=== PATIENT | female | born 1950 | race Caucasian/White ===

== ENCOUNTER → 2016-07-05 | Outpatient (CLI) | payer BC ==
[~2016-07-05] MED LIST: ASPI-664 PO; CHOL400C PO; HYDR12.58 PO; LORA-441 PO; LORA0.5T PO; MAXZ25 PO; MECL-77 PO; MULT-552 PO; OMEG-135 PO; OMEG500C3 PO; ONDA4SOL2 PO; RESTOP4 OP; TURM500C8 PO; ZOLP5TAB PO; [UNRECOGNIZED DRUG - CODE] PO
== END | disposition home or self-care (01) ==
LOC: HKI 09:27
PROVIDERS: ATTEND Orthopaedic Surgery
DX: Z01.818 Encounter for other preprocedural examination (principal); T84.06 Wear of articular bearing surface of internal prosthetic joint; T84.050 Periprosthetic osteolysis of internal prosthetic right hip joint; Z96.643 Presence of artificial hip joint, bilateral
CPT/HCPCS: G0463

== ENCOUNTER 2016-07-13 07:29 | Inpatient (IN) | payer BC, MEDICARE ==
[2016-07-12 15:44] VITALS: BMI 30.2
[2016-07-13] VITALS (17 sets, daily range): BP systolic 130–154; BP diastolic 71–91; PULSE 57–97; RESP 10–22; Ht 172.7 cm; Wt 85.2 kg
[~2016-07-13] VITALS: Ht 172.7 cm; Wt 85.2 kg
[2016-07-13] MEDS: PAIN COCKTAIL - VANCOMYCIN IRR SCH ×14 (06:00→12:39)
[~2016-07-13 07:29] MED LIST changes: +BUPIVACAINE LIPOSOME/PF 266 MG/20 ML VIAL INFIL SCH; +CEFAZOLIN 1 GM INJ ONE; +CELECOXIB 400 MG PO X1 DOSE PO ONE; -CHOL400C PO; +EXPAREL NOTE (BUPIVICAINE LIPOSOMAL) XX SCH; -HYDR12.58 PO; +LACTATED RINGER'S 1,000 ML IV SCH; -LORA-441 PO; -LORA0.5T PO; -MAXZ25 PO; -MECL-77 PO; -ONDA4SOL2 PO; +PREGABALIN 300 MG PO X1 PO ONE; +TRANEXAMIC ACID 900 MG in SOD CHLORIDE 0.9% 100 ML IVPB SCH; +TRANEXAMIC ACID 900 MG in SOD CHLORIDE 0.9% 91 ML IV ONE; -TURM500C8 PO; +VANCOMYCIN 1 GM/NS 250 ML X1 BEFORE INCISION IVPB ONE; -ZOLP5TAB PO; +oxyCODONE (CR) 10 MG TAB [oxyCONTIN] X1 DOSE PO ONE; +traMADOL 50 MG TAB X 1 DOSE PO ONE
[2016-07-13] MEDS ORDERED: ZOLP5TAB PO (09:06)
[2016-07-13] MEDS ORDERED: LORA0.5T PO (09:06)
[2016-07-13] MEDS ORDERED: LORA-441 PO (09:06)
[2016-07-13] MEDS ORDERED: ONDA4SOL2 PO (09:06)
[2016-07-13] MEDS ORDERED: TURM500C8 PO (09:06)
[2016-07-13] MEDS ORDERED: HYDR12.58 PO (09:06)
[2016-07-13] MEDS ORDERED: CHOL400C PO (09:06)
[2016-07-13] MEDS ORDERED: MAXZ25 PO (09:07)
[2016-07-13] MEDS ORDERED: MECL-77 PO (09:09)
[2016-07-13] MEDS ORDERED: BACITRACIN 50000 UNITS INJ ONE (09:31)
--- NOTE | 2016-07-13 10:03 | HPN ---
Date/Time of Note Date/Time of Note DATE: 07/13/16 TIME: 10:02 Interval H&P Admission Note Pt. seen H&P reviewed: No system changes No change from H&P on 07/05/16 by LEENA Chadwick MD Jul 13, 2016 10:03
[2016-07-13] MEDS ORDERED: HEPARIN 1000 UNITS/ML 10 ML INJ ONE (10:05)
[2016-07-13] MEDS ORDERED: SODIUM CL BACTERIOSTATIC 30 ML INJ ONE ×2 (10:05→11:51)
[2016-07-13] MEDS ORDERED: VANCOMYCIN 1 GM INJ ONE ×2 (10:06→10:13)
[2016-07-13] MEDS ORDERED: POLYMYXIN B 500000 UNIT INJ ONE (10:06)
[2016-07-13] MEDS ORDERED: TOBRAMYCIN 1.2 GM POWDER ONE (10:13)
[2016-07-13] MEDS ORDERED: FENTAnyl 50 MCG/ML VIAL ONE (10:33)
[2016-07-13] MEDS ORDERED: MIDAZOLAM 1 MG/ML 2 ML INJ ONE (10:33)
[2016-07-13] MEDS ORDERED: DEXAMETHASONE 4 MG/ML 1 ML INJ ONE (10:44)
[2016-07-13] MEDS: traMADol 50 MG TAB PO SCH ×3 (12:00→23:05)
[2016-07-13] MEDS ORDERED: NALOXONE (0.4 MG/ML) INJ IV PRN (13:00)
[2016-07-13] MEDS ORDERED: ONDANSETRON 4 MG INJ IV PRN ×3 (13:00→13:30)
[2016-07-13] MEDS ORDERED: LABETALOL HCL 20MG INJ IV PRN (13:00)
[2016-07-13] MEDS ORDERED: MEPERIDINE 25 MG INJ IV PRN (13:00)
[2016-07-13] MEDS ORDERED: METOCLOPRAMIDE 10 MG INJ IV PRN (13:00)
[2016-07-13] MEDS ORDERED: DIPHENHYDRAMINE 50 MG INJ IV PRN ×2 (13:00)
[2016-07-13] MEDS ORDERED: HYDROmorphONE (0.2 MG/ML) 10ML SYG IV PRN ×2 (13:00)
[2016-07-13] MEDS ORDERED: FENTAnyl 50 MCG/ML VIAL IV PRN (13:00)
[2016-07-13] MEDS ORDERED: hydrALAzine 20 MG INJ IV PRN (13:00)
[2016-07-13] MEDS ORDERED: PROPOFOL 100 ML ONE (13:09)
[2016-07-13] MEDS ORDERED: ONDANSETRON 4 MG INJ ONE (13:09)
[2016-07-13] MEDS ORDERED: PROPOFOL 20 ML ONE (13:09)
[2016-07-13] MEDS ORDERED: ROCURONIUM 50 MG INJ ONE (13:09)
[2016-07-13] MEDS ORDERED: LIDOCAINE 2% (SDV) 5 ML INJ ONE (13:09)
--- NOTE | 2016-07-13 13:19 | RADRPT ---
PROCEDURE: Right hip x-rays series CLINICAL INDICATION: Pain. Right hip arthroplasty TECHNIQUE: Single AP x-ray was obtained intraoperatively during a right hip arthroplasty procedure . COMPARISON: None available FINDINGS: Single AP x-ray was obtained intraoperatively for localization during a right hip arthroplasty. Bila teral hip arthroplasties are seen in anatomic position. IMPRESSION: 1. Xray image obtained intraoperatively for localization during a right hip arthroplasty. RPTAT: QQ .Dustin Sosa MD, MD Date Time Electronically viewed and signed by .Dustin Sosa MD, on 07/13/2016 13:19 .R/
[2016-07-13] MEDS ORDERED: NACL 0.9% 3 ML SYG IV SCH (13:30)
[2016-07-13] MEDS ORDERED: HYDROmorphONE 1 MG/ML SYG IV PRN (13:30)
[2016-07-13] MEDS ORDERED: oxyCODONE 5 MG TAB PO PRN ×2 (13:30)
[2016-07-13] MEDS ORDERED: MAGNESIUM HYDROXIDE 30ML CUP PO PRN (13:30)
[2016-07-13] MEDS ORDERED: ZOLPIDEM 5 MG TAB PO PRN (13:30)
[2016-07-13] MEDS ORDERED: LORAZEPAM 0.5 MG TAB PO PRN (13:30)
[2016-07-13] MEDS ORDERED: BISACODYL 10 MG SUPP PR PRN (13:30)
[2016-07-13] MEDS ORDERED: DIPHENHYDRAMINE 25 MG CAP PO PRN (13:30)
[2016-07-13] MEDS ORDERED: NA PHOSPHATE/BIPHOS 133 ML ENEMA PR PRN (13:30)
[2016-07-13] MEDS ORDERED: ASPIRIN (EC) 325 MG TAB PO ONE (13:30)
--- NOTE | 2016-07-13 13:42 | OPPN ---
Date/Time of Note Date/Time of Note DATE: 07/13/16 TIME: 13:39 Operative/Procedure Note Dictation # [id number] Pre-Operative Diagnosis Polyethylene Wear Right FABIENNE Post-Operative Diagnosis Same Procedure Revision Right FABIENNE Surgeon: LEENA CONKLIN MD Banquet Bartender: TRACY MCCALLUM PA-C Anesthesiologist: ALEXEI LINDSAY MD Findings Poly wear, osteolysis proximal femur, well fixed components Blood Usage/Administration None Implants/Grafts Beba poly liner and cobalt chrome femoral head Estimated blood loss: 150 - 200 ml's Drains Hemovac x 1 Specimens Aerobic and anaerobic culture x 2 Complications: None Anesthesia type: spinal LEENA CONKLIN MD Jul 13, 2016 13:41
[2016-07-13] MEDS: LACTATED RINGER'S 1,000 ML IV SCH ×2 (14:23→18:02)
[2016-07-13 14:29] LABS: POTASSIUM 4.6 mmol/L (3.5-5.1)
[2016-07-13 14:32] LABS: CREATININE 0.74 mg/dl (0.44-1.00)
--- NOTE | 2016-07-13 14:43 | OPR ---
DATE OF OPERATION: 07/13/2016 PREOPERATIVE DIAGNOSIS: Polyethylene wear, right total hip arthroplasty. POSTOPERATIVE DIAGNOSIS: Polyethylene wear, right total hip arthroplasty. OPERATION PERFORMED: Revision right total hip arthroplasty (head and liner exchange) SURGEON: Leena Mandel MD BAG MACHINE OPERATOR HELPER: EMMA Moya COMPONENTS USED: [employer] 32+4 10-degree elevated polyethylene liner, 32+4 cobalt chrome femoral head. ANESTHESIA: Spinal plus general endotracheal intubation plus periarticular injection. ANESTHESIOLOGIST: Andrea Frias MD ESTIMATED BLOOD LOSS: 200 mL INTRAVENOUS FLUIDS: 1400 mL crystalloid. SPECIMENS: Aerobic and anaerobic culture of joint fluid x2. DRAINS: Hemovac x1. COMPLICATIONS: None. DISPOSITION: The patient tolerated the procedure well, was taken to the recovery room in stable condition. INDICATIONS: The patient is a 65-year-old woman who had a previous right total hip arthroplasty through a posterior approach about 15 years ago. She has developed eccentric polyethylene wear with superolateral proximal migration of the femoral head. I felt she would benefit from a revision with head and liner exchange. There was also some mild osteolysis proximally in the femur. I felt this may be amenable to allograft packing, which she consented to. The risks, benefits, and alternatives to hip replacement surgery were discussed at length with the patient. The risks of the surgery were explained to include bleeding; infection; pain; stiffness; neurovascular injury including possible numbness, weakness, or permanent paralysis anywhere from the hip down to the toes; fracture; instability; dislocation; leg length inequality; wearing and/or loosening of the prosthesis and possible need for revision at a later date; blood clots; pulmonary embolism; and anesthetic complications such as heart attack, stroke, gastrointestinal bleeding, pneumonia, and/or . Ample time was allowed for the patient to ask questions, all of which were addressed and answered. She understood the risks involved and wished to proceed. Informed consent was signed. DESCRIPTION OF PROCEDURE: The right hip was initialed with a marking pen in the preoperative holding area to identify the correct operative site. The patient was then brought to the operating room and transferred from the [facility] to the operating table, where she was administered a spinal anesthetic and then anesthetized and intubated. Time-out was performed to confirm the right side was correct operative site. She was turned to lateral decubitus position with the right side up. An axillary roll was placed under the left chest wall. She was secured into the pegboard, and all bony prominences were well padded. The right hip and lower extremity were prepped and draped in usual sterile fashion. The patient had been given 1 gram of vancomycin, 1 gram of intravenous Ancef within 1 hour prior to the incision. The previous posterolateral scar was excised. This was carried down to subcutaneous tissue and fat with sharp dissection. The iliotibial band, gluteus rudi muscle fascia were incised along the length of the wound. The gluteus rudi muscle fibers were bluntly split. The trochanteric bursa was incised. The posterior capsule and short external rotator soft tissue sleeve, which was scarred down to 1 wad of tissue, was taken off the posterior aspect of the greater trochanter with electrocautery and tagged with #2 FiberWire. Synovial fluid was encountered and normal in color and consistency and swabbed for aerobic and anaerobic cultures. Femoral head was dislocated posteriorly. The stem appeared well affixed and had about 20 degrees of anteversion. There was some osteolysis along the posterior calcar which was removed with a curet. This was irrigated. The stem remained well affixed. The fibrous tissue around the acetabulum was debrided with a sharp scalpel blade and a small pocket made anteriorly for the trunnion to sit. The femur was retracted anteriorly, and the polyethylene liner was identified. A screw was drilled into the liner to remove this from the cup. The cup remained well fixed and had about 45 degrees of adduction and 20 degrees of anteversion. The central hole eliminator had pushed medial, and I was unable to bring it back out, but I felt that it would be safe to leave it in place. The cup was irrigated, and the real 32+4 10- degree lipped polyethylene liner was opened and packed into the acetabulum and sat flush circumferentially. The apex was placed at about the 10-o'clock position. The trunnion was irrigated and dried, and I trialed with a 32+8 head , but this was extremely tight and difficult to reduce. I then trialed with the 32+4 and felt that this was able to be reduced. The Ranawat sign showed a combined forward flexion of 45 degrees. The hip was stable. The hip came to 110 degrees of flexion. At 90 degrees of flexion and neutral abduction, the hip was stable posteriorly to 80 degrees of internal rotation. In the position of sleep was stable to 85 degrees of internal rotation. The hip came to full extension with no posterior impingement or anterior instability. Cross-table AP pelvis showed that the leg lengths were equal, as was the offset. At this point, the trial was dislocated and the real head opened and impacted onto the trunnion and reduced into the acetabulum. A repeat cross-table AP pelvis was obtained showing the leg lengths and offset to be equal. Allograft had been packed into the osteolytic defect posteromedially. The hip was irrigated with antibiotic saline pulsatile lavage and then Betadine saline and then additional antibiotic saline pulsatile lavage. Soft tissues were infiltrated with a combination of 0.5% bupivacaine, Duramorph, epinephrine, vancomycin, Toradol, clonidine, normal saline and 266 mg of liposomal bupivacaine. A Hemovac drain was placed in the deep portion of the wound and brought out the anterolateral thigh. The hip was filled with Stimulan beads that were mixed with vancomycin and tobramycin. The posterior capsule and short external rotator sleeve were repaired back to the greater trochanter through drill holes with #2 FiberWire. Quadratus femoris was repaired back to the vastus lateralis with running #1 Vicryl. The sciatic nerve was palpated, noted to be intact with no undue tension. The iliotibial band was closed with interrupted #1 Ethibonds in a [id number] fashion. The subcutaneous layer was irrigated and closed with 2 -0 Stratafix and then 3-0 Stratafix and then nir on the skin. The skin edges were sealed with Dermabond. The drain was secured with 3-0 nylon. Sponge and needle counts correct at the end of the case. The wound was covered with a silver Mepilex dressing. The patient was taken out of the pegboard and turned to the supine position, where she was noted to have equal leg lengths. She was awakened, extubated. An abduction pillow was placed between her legs, and she was transferred to the [facility] and taken to the recovery room in stable condition. Dictated By: LEENA ANSARI/ANGELITA Conf#: [id number] DID#: [id number] TARA
--- NOTE | 2016-07-13 15:04 | PN ---
Date/Time of Note Date/Time of Note DATE: 07/13/16 TIME: 14:59 Assessment/Plan Lines/Catheters IV Catheter Type (from Nrsg): Peripheral IV Assessment/Plan Assessment/Plan Stable in PACU, s/p revision right FABIENNE (head and liner exchange) -cont Vanco x 72 hours until culture are negative -pain meds -ASA/SCDs for DVT prophylaxis -OOB with PT -monitor drain -check AM labs -d/c zapien in AM XR of the right hip shows good alignment with no evidence of dislocation Subjective 24 Hr Interval Summary Doing well in PACU. Denies any pain. Moving all extremities. Abduction pillow in place. Exam/Review of Systems Vital Signs Vitals Vital Signs Date Time Temp Pulse Resp B/P Pulse Ox O2 Delivery O2 Flow Rate FiO2 07/13/16 14:43 68 15 130/85 97 Room Air 07/13/16 13:50 98.0 Exam Free Text/Dictation Dressing dry Incision clean, dry, and intact without redness or drainage 5/5 Quadriceps, Tibialis Anterior, EHL, Gastroc, Soleus, Peroneals Normal sensation Palpable DT/PT, CR <2 sec No distal edema Results Result Diagram: 07/13/16 1400 TRACY MCCALLUM PA-C Jul 13, 2016 15:04
--- NOTE | 2016-07-13 15:32 | RADRPT ---
PROCEDURE: XR Hip. CLINICAL INDICATION: Postoperative evaluation TECHNIQUE: AP view of the right hip was performed. COMPARISON: None. FINDINGS: Right hip arthroplasty is in place, in anatomic position. There is no acute fracture or dislocation . Antibiotic beads, surgical drain and skin nir are identified in place. No radiodense foreign body is identified. IMPRESSION: 1. Unremarkable right hip arthroplasty postoperative appearance. RPTAT: QQ .Dustin Sosa MD, MD Date Time Electronically viewed and signed by .Dustin Sosa MD, on 07/13/2016 15:32 .R/
--- NOTE | 2016-07-13 15:34 | RADRPT ---
PROCEDURE: XR pelvis. CLINICAL INDICATION: Hip pain TECHNIQUE: Single view available for review. COMPARISON: 04/17/2016 FINDINGS: There is a postoperative right total hip replacement. There are antibiotic beads surrounding the rig ht hip. The drain is in place. There is no evidence of loosening of the prosthesis. There is a unr emarkable previous left total hip replacement. There is normal mineralization, architecture and alig nment. No fractures, dislocation or osseous lesions are identified. The joints are unremarkable. There are normal soft tissues. IMPRESSION: Postoperative right total hip replacement Antibiotic beads surrounding the right hip. Drain in place. Unremarkable previous left total hip replacement RPTAT: HGDB .Delano Lemus MD, Date Time Electronically viewed and signed by .Delano Lemus MD, on 07/13/2016 15:33 .B/
[2016-07-13 15:47] LABS: HEMOGLOBIN 15.1 g/dl (12.0-16.0)
--- NOTE | 2016-07-13 17:35 | CONS ---
DATE OF ADMISSION: 07/13/2016 DATE OF CONSULTATION: 07/13/2016 Thank you very much for allowing me to evaluate this 65-year-old female who just underwent right hip surgery. HISTORICAL EVENTS: As you well know, this patient did undergo right hip arthroplasty, having had a prior hip replacement. Presently on the orthopedic floor, she is comfortable without cough, wheezin g, shortness of breath, nausea, vomiting, abdominal or chest pain. PAST MEDICAL HISTORY: Includes: 1. Tubal ligation. 2. Breast augmentation. 3. Lasix surgery. 4. Blepharoplasty. 5. Total abdominal hysterectomy. 5. History of benign positional vertigo. 7. History of hypertension. 8. No history of coronary disease or diabetes. 9. History of low back pain, undergoing orthopedic evaluation with Dr. Kaplan in the late fall o f this year, receiving an epidural with release of "back pain". MEDICATIONS: Prior to admission: 1. Ambien 10 mg per day. 2. Restasis OU b.i.d. 3. Caltrate b.i.d. 4. Maxzide 25/37.5 mg daily. 5. Antivert 25 mg q.6h. p.r.n. SOCIAL HISTORY: She does not smoke. She is an RN. FAMILY HISTORY: Positive for hypertension and coronary artery disease. ALLERGIES: INCLUDE PENICILLIN. PHYSICAL EXAMINATION: GENERAL: [place] female in no acute distress. VITAL SIGNS: BP 122/80, pulse 70, respirations are 20, she was afebrile. EYES: Extraocular muscles were full. NOSE, MOUTH, AND THROAT: Normal. NECK: Supple. There was no jugular venous distention, thyroid enlargement or adenopathy. Carotids 2+. LUNGS: Clear. HEART: Rhythm regular. ABDOMEN: Nontender. Liver and spleen were not palpable. No masses or tenderness were noted. EXTREMITIES: No edema. IMPRESSION: 1. Stable postop right hip revision. 2. History of hypertension. BP will be monitored throughout. At this point will not resume diuret ics a PLAN: Will follow daily and observe for signs and symptoms of thromboembolic disease. Dictated By: OSMAN BARNETT/NTS Conf#: [id number] DID#: [id number]
[2016-07-13] MEDS: ACETAMINOPHEN 1000MG/100ML IV 100 ML IVPB SCH ×2 (18:01→23:05)
[2016-07-13] MEDS: PANTOPRAZOLE (EC) 40 MG TAB PO SCH (18:01)
[2016-07-13] MEDS: DOCUSATE SODIUM 100 MG CAP PO SCH (20:55)
[2016-07-13] MEDS: PREGABALIN 25 MG CAP PO SCH (20:56)
[2016-07-13] MEDS: CYCLOSPORINE 0.05% OPH DROPERETTE LEFT EYE SCH (22:34)
[2016-07-13] MEDS: VANCOMYCIN 1 GM (PMX) 250 ML IVPB SCH (23:29)
[2016-07-14] VITALS: BP 161/78; RESP 18
[2016-07-14 01:44] VITALS: BP 126/70; PULSE 79
[2016-07-14] MEDS: traMADol 50 MG TAB PO SCH ×4 (05:27→23:34)
[2016-07-14] MEDS: PANTOPRAZOLE (EC) 40 MG TAB PO SCH ×2 (05:27→17:38)
[2016-07-14] MEDS: LACTATED RINGER'S 1,000 ML IV SCH ×4 (05:27→21:30)
[2016-07-14] MEDS: ACETAMINOPHEN 1000MG/100ML IV 100 ML IVPB SCH ×2 (05:27→13:12)
[2016-07-14 06:18] LABS: HEMATOCRIT 38.6 % (37.0-47.0); HEMOGLOBIN 13.1 g/dl (12.0-16.0)
[2016-07-14 06:44] LABS: POTASSIUM 4.4 mmol/L (3.5-5.1)
[2016-07-14 06:47] LABS: CREATININE 0.69 mg/dl (0.44-1.00)
[2016-07-14 06:48] LABS: CALCIUM 8.6 mg/dl (8.4-10.2)
[2016-07-14 07:19] LABS: ADD UMIC NO; URINE BILIRUBIN (Dip) NEGATIVE (NEGATIVE); URINE BLOOD (Dip) NEGATIVE (NEGATIVE); URINE COLOR LT. YELLOW (YELLOW); URINE GLUCOSE (Dip) NEGATIVE (NEGATIVE); URINE KETONES (Dip) NEGATIVE (NEGATIVE); URINE LEUKOCYTE ESTERASE (Dip) NEGATIVE (NEGATIVE); URINE NITRITE (Dip) NEGATIVE (NEGATIVE); URINE TOTAL PROTEIN (Dip) NEGATIVE (NEGATIVE); URINE UROBILINOGEN (Dip) 0.2 E.U./dL (0.1-1.0)
--- NOTE | 2016-07-14 07:45 | PDOCDIS ---
Discharge Instructions DIAGNOSIS Discharge Diagnosis: s/p revision right FABIENNE (head and liner exchange) CONDITION Patient Condition: Good HOME CARE INSTRUCTIONS: Diet Instructions: Regular ACTIVITY: Activity Restrictions: Slowly Increase Activity Rest between Activity Avoid heavy lifting Do not operate Machinery Do not operate Power Tool Avoid Heavy Housework Keep Limb Elevated Bathing Restrictions: Shower FOLLOW UP/APPOINTMENTS Appointments follow up with Dr. Mandel in the office on 07/24/16 OTHER ORDERS: Other Orders: S/P Revision Posterior FABIENNE Physical Therapy: Three times per week at home x 2 weeks Daily in Rehab/SNF (if applicable) WB STATUS: WBAT Strengthening exercises for both upper and un-operated lower extremities. 1. Gait training with front wheeled walker 2. Wide base gait, no pivot turns. 3. Abductor strengthening. 4. Quadriceps and hamstring strengthening. 5. May switch to cane in contra lateral hand 6 weeks after surgery. 6. Physical Therapy can open case if nursing is not available. 7. Ice Packs while at rest to surgical wound for 20 minutes, 3 times/day. 8. Patient requires mobile SCDs to reduce risk of developing DVT following FABIENNE. Patient will use the mobile SCDs for 30 days postoperatively. Hip Precautions: no flexion beyond 90 degrees, no adduction, no internal rotation. Bathing assistance by home health aide twice weekly if Medicare patient. Occupational Therapy: Evaluation for assistive devices and ADL training. Wound Care: Keep incision dry & covered with Tegaderm until first visit with Dr. Mandel Anticoagulation Orders: Enteric Coated Aspirin 325 mg po bid x 6 weeks from date of surgery Follow-up:Call for an appointment with Dr. Mandel in 1 week after discharged from hospital at DME Orders: APRIL, 3-in-1 Commode, Mobile SCDs TRACY MCCALLUM PA-C Jul 14, 2016 07:45
[2016-07-14] MEDS ORDERED: ASPI325T32 PO (07:48)
[2016-07-14] MEDS ORDERED: PANT40TA4 PO (07:48)
[2016-07-14] MEDS ORDERED: HYDR-906 PO (07:48)
[2016-07-14] MEDS ORDERED: TRAM50TA2 PO (07:48)
[2016-07-14 08:23] VITALS: BP 151/87; RESP 16
--- NOTE | 2016-07-14 08:27 | PN ---
Date/Time of Note Date/Time of Note DATE: 07/14/16 TIME: 08:25 Assessment/Plan Lines/Catheters IV Catheter Type (from Nrsg): Peripheral IV Mcarthur in Place (from Nrsg): Yes Assessment/Plan Assessment/Plan Stable POD #1 s/p revision right posterior FABIENNE (head and liner exchange) -cont vanco x 72 hours until cx are negative -pain meds -ASA/SCDS -posterior hip precautions -OOB with PT -drain removed -check AM labs -d/c planning. Will likely go home on Sunday after final cx results Subjective 24 Hr Interval Summary Doing well. No acute overnight events. Denies significant pain. Did not start PT yet. VSS, afebrile. Exam/Review of Systems Vital Signs Vitals Vital Signs Date Time Temp Pulse Resp B/P Pulse Ox O2 Delivery O2 Flow Rate FiO2 07/14/16 08:23 98.2 68 16 151/87 92 07/13/16 16:20 Room Air Intake and Output 07/13/16 07/13/16 07/14/16 15:00 23:00 07:00 Intake Total 1400 ml 100 ml 3250 ml Output Total 670 ml 560 ml 3550 ml Balance 730 ml -460 ml -300 ml Exam Free Text/Dictation Hemovac: 30cc Dressing dry Incision clean, dry, and intact without redness or drainage 5/5 Quadriceps, Tibialis Anterior, EHL, Gastroc, Soleus, Peroneals Normal sensation Palpable DT/PT, CR <2 sec No distal edema Results Result Diagram: 07/14/1643907/14/16439 TRACY MCCALLUM PA-C Jul 14, 2016 08:27
[2016-07-14] MEDS: CELECOXIB 200 MG CAP PO SCH (08:28)
[2016-07-14] MEDS: ASPIRIN (EC) 325 MG TAB PO SCH ×2 (08:29→20:47)
[2016-07-14] MEDS: PREGABALIN 25 MG CAP PO SCH ×2 (08:29→20:47)
[2016-07-14] MEDS: DOCUSATE SODIUM 100 MG CAP PO SCH ×2 (08:29→20:47)
[2016-07-14] MEDS: CYCLOSPORINE 0.05% OPH DROPERETTE LEFT EYE SCH ×2 (08:29→21:00)
[2016-07-14] MEDS: VANCOMYCIN 1 GM (PMX) 250 ML IVPB SCH ×2 (10:58→20:47)
--- NOTE | 2016-07-14 13:39 | CONS ---
Date/Time of Note Date/Time of Note DATE: 07/14/16 TIME: 13:35 Assessment/Plan Assessment/Plan Chief Complaint/Hosp Course 1. She is 1 day post op a R FABIENNE revision , she is doing well . 2. HTN , D/C IV fluid and will restart Triamterene / HCTZ 3. continue current medication and PT . Problems: Consultation Date/Type/Reason Admit Date/Time Jul 13, 2016 at 07:29 Initial Consult Date 24 HR Interval Summary Free Text/Dictation she is 1 day post op a R FABIENNE revision . She denies pain . Constitutional: improved, no complaints Exam/Review of Systems Vital Signs Vitals Vital Signs Date Time Temp Pulse Resp B/P Pulse Ox O2 Delivery O2 Flow Rate FiO2 07/14/16 08:23 98.2 68 16 151/87 92 07/13/16 16:20 Room Air Intake and Output 07/13/16 07/13/16 07/14/16 15:00 23:00 07:00 Intake Total 1400 ml 100 ml 3250 ml Output Total 670 ml 560 ml 3550 ml Balance 730 ml -460 ml -300 ml Exam Constitutional: alert, oriented, well developed Psych: nl mood/affect, no complaints Respiratory: clear to auscultation, normal air movement Cardiovascular: regular rate and rhythm Gastrointestinal: soft Musculoskeletal: nl extremities to inspection Results Result Diagram: 07/14/16 0440 07/14/16 0440 Results 24 hrs Laboratory Tests Test 07/13/16 14:00 07/14/16 04:25 07/14/16 04:40 Anion Gap 19 H 15 Blood Urea Nitrogen 12 13 Calcium Level 9.0 8.6 Carbon Dioxide Level 22 24 Chloride Level 103 101 Creatinine 0.74 0.69 Glucose Level 115 122 Hematocrit 46.0 38.6 Hemoglobin 15.1 13.1 Potassium Level 4.6 4.4 Sodium Level 139 136 Urine Bilirubin NEGATIVE Urine Clarity CLEAR Urine Color LT. YELLOW Urine Glucose NEGATIVE Urine Hemoglobin NEGATIVE Urine Ketones NEGATIVE Urine Leukocyte Esterase NEGATIVE Urine Nitrite NEGATIVE Urine Specific [place] <=1.005 L Urine Total Protein NEGATIVE Urine Urobilinogen 0.2 E.U./dL Urine pH 5.5 Medications Medications Current Medications Miscellaneous Information 1 ea NOTE XX ; Start 07/13/16 at 06:00; Stop 07/16/16 at 05:59 Diphenhydramine HCl (Benadryl) 25 mg Q4H PRN IV PRURITUS; Start 07/13/16 at 13: 00 Naloxone HCl (Narcan) 0.2 mg Q2M PRN IV FOR RESP RATE 8 OR LESS; Start 07/13/16 at 13:00 Lorazepam (Ativan) 0.25 mg Q6 PRN PO ANXIETY; Start 07/13/16 at 13:30 Zolpidem Tartrate 5 mg 5 mg QHS PRN PO INSOMNIA; Start 07/13/16 at 13:30 Lactated Ringer's (Lr) 1,000 ml @ 125 mls/hr Q8H IV Last administered on 05:27; Admin Dose 125 MLS/HR; Start 07/13/16 at 13:25 Celecoxib 200 mg 200 mg DAILY PO Last administered on 07/14/16 08:28; Admin Dose 200 MG; Start 07/14/16 at 09:00 Acetaminophen (Ofirmev 1000mg/ 100ml Iv) 100 ml @ 400 mls/hr Q6 IVPB Last administered on 07/14/16 13:12; Admin Dose 400 MLS/HR; Start 07/13/16 at 18:00; Stop 07/14/16 at 17:59 Tramadol HCl (Ultram) 50 mg Q6 PO Last administered on 07/14/16 13:13; Admin Dose 50 MG; Start 07/13/16 at 12:00; Stop 07/16/16 at 11:59 Oxycodone HCl (Roxicodone) 5 mg Q4H PRN PO PAIN LEVEL 1-3; Start 07/13/16 at 13: 30 Oxycodone HCl (Roxicodone) 10 mg Q4H PRN PO PAIN LEVEL 4-7; Start 07/13/16 at 13 :30 Hydromorphone HCl 1 mg 1 mg Q3H PRN IV PAIN LEVEL 8-10; Start 07/13/16 at 13:30 Vancomycin HCl (Vancocin) 250 ml @ 125 mls/hr Q12 IVPB Last administered on 10:58; Admin Dose 125 MLS/HR; Start 07/13/16 at 21:00; Stop 07/16/16 at 20:59 Ondansetron HCl (Zofran Inj) 4 mg Q6H PRN IV NAUSEA AND/OR VOMITING; Start 07/13 at 13:30 Bisacodyl (Dulcolax Supp) 10 mg Q12H PRN CA CONSTIPATION; Start 07/13/16 at 13: 30 Magnesium Hydroxide (Milk Of Mag) 30 ml BID PRN PO CONSTIPATION; Start 07/13/16 at 13:30 Sodium Biphosphate/ Sodium Phosphate (Fleet Enema) 133 ml DAILY PRN CA CONSTIPATION; Start 07/13/16 at 13:30 Docusate Sodium (Colace) 100 mg BID PO Last administered on 07/14/16 08:29; Admin Dose 100 MG; Start 07/13/16 at 21:00 Diphenhydramine HCl (Benadryl) 25 mg Q6H PRN PO PRURITUS; Start 07/13/16 at 13: 30 Aspirin (Ecotrin) 325 mg BID PO Last administered on 07/14/16 08:29; Admin Dose 325 MG; Start 07/14/16 at 09:00 Pregabalin (Lyrica) 50 mg BID PO Last administered on 07/14/16 08:29; Admin Dose 50 MG; Start 07/13/16 at 21:00 Pantoprazole (Protonix Tab) 40 mg BID@06,18 PO Last administered on 07/14/16 05:27; Admin Dose 40 MG; Start 07/13/16 at 18:00 Cyclosporine (Restasis) 1 drop BID LEFT EYE Last administered on 07/14/16 08: 29; Admin Dose 1 DROP; Start 07/13/16 at 21:00 Miscellaneous Information (*Rx Drug Level Order Reminder*) VANCO TROUGH @ 0, 800 ON... ONCE ONCE XX ; Start 07/15/16 at 08:00; Stop 07/15/16 at 08:01 GAURI MOREL MD Jul 14, 2016 13:39
[2016-07-14 19:00] VITALS: BP 148/68; RESP 18
[2016-07-15 05:48] LABS: HEMATOCRIT 35.8 % (37.0-47.0); HEMOGLOBIN 12.2 g/dl (12.0-16.0)
[2016-07-15 06:07] LABS: POTASSIUM 4.8 mmol/L (3.5-5.1)
[2016-07-15 06:09] LABS: CREATININE 0.89 mg/dl (0.44-1.00)
[2016-07-15 06:10] LABS: CALCIUM 8.7 mg/dl (8.4-10.2)
[2016-07-15] MEDS: traMADol 50 MG TAB PO SCH ×4 (06:15→23:59)
[2016-07-15] MEDS: PANTOPRAZOLE (EC) 40 MG TAB PO SCH ×2 (06:15→18:03)
[2016-07-15 07:49] VITALS: BP 131/76; RESP 17
--- NOTE | 2016-07-15 08:26 | PN ---
Date/Time of Note Date/Time of Note DATE: 07/15/16 TIME: 08:22 Assessment/Plan VTE Prophylaxis VTE Prophylaxis Intervention: ambulation, SCD's, other (Aspirin 325 mg.) Lines/Catheters IV Catheter Type (from Nrsg): Saline Lock Mcarthur in Place (from Nrsg): Yes Assessment/Plan Assessment/Plan Stable POD #2 s/p revision right posterior FABIENNE (head and liner exchange) -cont vanco x 1 more day until cx are negative -pain meds -ASA/SCDS -posterior hip precautions -OOB with PT -check AM labs -d/c planning. Will likely go home tomorrow (Sunday) after final cx results Subjective 24 Hr Interval Summary 65-year-old female postop day 2. Patient doing well with no pain complaints. Has initiated physical therapy and confirms that she was ambulating throughout the hallways with assisted ambulation using front wheeled walker. Denies any calf pain, chest pain or shortness of breath. Patient is very pleased status post surgery. Constitutional: ambulates, no complaints Pain Control: well controlled Exam/Review of Systems Vital Signs Vitals Vital Signs Date Time Temp Pulse Resp B/P Pulse Ox O2 Delivery O2 Flow Rate FiO2 07/15/16 07:49 97.5 67 17 131/76 98 07/13/16 16:20 Room Air Intake and Output 07/14/16 07/14/16 07/15/16 15:00 23:00 07:00 Intake Total 350 ml 2790 ml 250 ml Output Total 40 ml 1800 ml Balance 310 ml 990 ml 250 ml Exam Free Text/Dictation -Hemovac: Removed -Incision: Clean, Dry and Intact without any redness or drainage. Maryuri intact. -Thigh soft -5/5 Quadriceps, Tibialis Anterior, EHL Gastrocnemius/Soleus and Peroneals -Normal Sensation -Palpable DP/PT, Capillary Refill <2 secs -No Distal Edema -Negative Neli Sign/No calf pain -Toes Freely Movable Constitutional: alert, oriented, well developed Results Result Diagram: 07/15/16 0440 07/15/16 0410 JOELLE KEMP PA-C Jul 15, 2016 08:26
[2016-07-15] MEDS: ASPIRIN (EC) 325 MG TAB PO SCH ×2 (08:53→20:50)
[2016-07-15] MEDS: CELECOXIB 200 MG CAP PO SCH (08:53)
[2016-07-15] MEDS: DOCUSATE SODIUM 100 MG CAP PO SCH ×2 (08:54→20:51)
[2016-07-15] MEDS: PREGABALIN 25 MG CAP PO SCH ×2 (08:54→20:50)
[2016-07-15] MEDS: TRIAMTERENE/HCTZ (37.5-25) CAP PO SCH (08:54)
[2016-07-15] MEDS: VANCOMYCIN 1 GM (PMX) 250 ML IVPB SCH ×2 (10:58→20:50)
[2016-07-15] MEDS: CYCLOSPORINE 0.05% OPH DROPERETTE LEFT EYE SCH ×2 (10:59→20:50)
[2016-07-15] MEDS: LACTATED RINGER'S 1,000 ML IV SCH ×2 (12:19→21:25)
--- NOTE | 2016-07-15 13:02 | CONS ---
Date/Time of Note Date/Time of Note DATE: 07/15/16 TIME: 13:01 Assessment/Plan Assessment/Plan Additional Assessment/Plan 1. POD 2 - R FABIENNE revision; doing well and wants to go home 2. anti-HTN meds re-started, BP stable 3. await final cultures, cont Vanc for now 4. Agree with d/c home tomorrow once cultures finalize. Consultation Date/Type/Reason Admit Date/Time Jul 13, 2016 at 07:29 Initial Consult Date 24 HR Interval Summary Constitutional: no complaints Exam/Review of Systems Vital Signs Vitals Vital Signs Date Time Temp Pulse Resp B/P Pulse Ox O2 Delivery O2 Flow Rate FiO2 07/15/16 07:49 97.5 67 17 131/76 98 07/13/16 16:20 Room Air Intake and Output 07/14/16 07/14/16 07/15/16 15:00 23:00 07:00 Intake Total 350 ml 2790 ml 250 ml Output Total 40 ml 1800 ml Balance 310 ml 990 ml 250 ml Exam Constitutional: alert, oriented, well developed Respiratory: clear to auscultation, normal air movement Cardiovascular: nl pulses, regular rate and rhythm Results Result Diagram: 07/15/16 0440 07/15/16 0410 Results 24 hrs Laboratory Tests Test 07/15/16 04:10 07/15/16 04:40 07/15/16 09:06 Anion Gap 13 Blood Urea Nitrogen 12 Calcium Level 8.7 Carbon Dioxide Level 29 Chloride Level 98 Creatinine 0.89 Glucose Level 79 # Potassium Level 4.8 Sodium Level 135 Hematocrit 35.8 L Hemoglobin 12.2 Vancomycin Level Trough 14.0 Medications Medications Current Medications Miscellaneous Information 1 ea NOTE XX ; Start 07/13/16 at 06:00; Stop 07/16/16 at 05:59 Diphenhydramine HCl (Benadryl) 25 mg Q4H PRN IV PRURITUS; Start 07/13/16 at 13: 00 Naloxone HCl (Narcan) 0.2 mg Q2M PRN IV FOR RESP RATE 8 OR LESS; Start 07/13/16 at 13:00 Lorazepam (Ativan) 0.25 mg Q6 PRN PO ANXIETY; Start 07/13/16 at 13:30 Zolpidem Tartrate 5 mg 5 mg QHS PRN PO INSOMNIA; Start 07/13/16 at 13:30 Lactated Ringer's (Lr) 1,000 ml @ 125 mls/hr Q8H IV Last administered on 05:27; Admin Dose 125 MLS/HR; Start 07/13/16 at 13:25 Celecoxib (Celebrex) 200 mg DAILY PO Last administered on 07/15/16 08:53; Admin Dose 200 MG; Start 07/14/16 at 09:00 Tramadol HCl (Ultram) 50 mg Q6 PO Last administered on 07/15/16 12:14; Admin Dose 50 MG; Start 07/13/16 at 12:00; Stop 07/16/16 at 11:59 Oxycodone HCl (Roxicodone) 5 mg Q4H PRN PO PAIN LEVEL 1-3; Start 07/13/16 at 13: 30 Oxycodone HCl (Roxicodone) 10 mg Q4H PRN PO PAIN LEVEL 4-7; Start 07/13/16 at 13 :30 Hydromorphone HCl 1 mg 1 mg Q3H PRN IV PAIN LEVEL 8-10; Start 07/13/16 at 13:30 Vancomycin HCl (Vancocin) 250 ml @ 125 mls/hr Q12 IVPB Last administered on 10:58; Admin Dose 125 MLS/HR; Start 07/13/16 at 21:00; Stop 07/16/16 at 20:59 Ondansetron HCl (Zofran Inj) 4 mg Q6H PRN IV NAUSEA AND/OR VOMITING; Start 07/13 at 13:30 Bisacodyl (Dulcolax Supp) 10 mg Q12H PRN [place] CONSTIPATION; Start 07/13/16 at 13: 30 Magnesium Hydroxide (Milk Of Mag) 30 ml BID PRN PO CONSTIPATION; Start 07/13/16 at 13:30 Sodium Biphosphate/ Sodium Phosphate (Fleet Enema) 133 ml DAILY PRN [place] CONSTIPATION; Start 07/13/16 at 13:30 Docusate Sodium (Colace) 100 mg BID PO Last administered on 07/15/16 08:54; Admin Dose 100 MG; Start 07/13/16 at 21:00 Diphenhydramine HCl (Benadryl) 25 mg Q6H PRN PO PRURITUS; Start 07/13/16 at 13: 30 Aspirin (Ecotrin) 325 mg BID PO Last administered on 07/15/16 08:53; Admin Dose 325 MG; Start 07/14/16 at 09:00 Pregabalin (Lyrica) 50 mg BID PO Last administered on 07/15/16 08:54; Admin Dose 50 MG; Start 07/13/16 at 21:00 Pantoprazole (Protonix Tab) 40 mg BID@06,18 PO Last administered on 07/15/16 06:15; Admin Dose 40 MG; Start 07/13/16 at 18:00 Cyclosporine (Restasis) 1 drop BID LEFT EYE Last administered on 07/15/16 10: 59; Admin Dose 1 DROP; Start 07/13/16 at 21:00 Miscellaneous Information (*Rx Drug Level Order Reminder*) VANCO TROUGH @ 0, 800 ON... ONCE ONCE XX Last administered on 07/15/16 08:00; Admin Dose 1 EA; Start 07/15/16 at 08:00; Stop 07/15/16 at 08:01 Triamterene/HCTZ (Dyazide) 1 cap DAILY PO Last administered on 07/15/16 08:54 ; Admin Dose 1 CAP; Start 07/15/16 at 09:00 Clonidine (Catapres) 0.1 mg Q6H PRN PO ELEVATED BLOOD PRESSURE; Start 07/14/16 at 14:00 BAILEE WU MD Jul 15, 2016 13:02
[2016-07-15 20:00] VITALS: BP 124/67; PULSE 70; RESP 20
[2016-07-16 05:22] LABS: POTASSIUM 4.2 mmol/L (3.5-5.1)
[2016-07-16 05:25] LABS: CREATININE 0.82 mg/dl (0.44-1.00)
[2016-07-16] MEDS: LACTATED RINGER'S 1,000 ML IV SCH ×2 (05:25→13:25)
[2016-07-16 05:26] LABS: CALCIUM 8.5 mg/dl (8.4-10.2)
[2016-07-16 05:30] LABS: HEMATOCRIT 39.8 % (37.0-47.0); HEMOGLOBIN 13.6 g/dl (12.0-16.0)
[2016-07-16] MEDS: PANTOPRAZOLE (EC) 40 MG TAB PO SCH (06:50)
[2016-07-16] MEDS: traMADol 50 MG TAB PO SCH (06:51)
[2016-07-16 07:35] VITALS: BP 118/69; RESP 16
--- NOTE | 2016-07-16 08:17 | PN ---
Date/Time of Note Date/Time of Note DATE: 07/16/16 TIME: 08:09 Assessment/Plan VTE Prophylaxis VTE Prophylaxis Intervention: ambulation, SCD's, other (Aspirin 325 mg twice daily) Lines/Catheters IV Catheter Type (from Nrs): Saline Lock [place] in Place (from Nrs): No Assessment/Plan Assessment/Plan Stable POD #3 s/p revision right posterior FABIENNE (head and liner exchange) -give last vanco dose prior to discharge. This was communicated with nurse and patient directly today. -pain meds -ASA/SCDS -posterior hip precautions -OOB with PT -Called microbiology lab and they have confirmed that final result of culture is negative. Patient's final urine culture is also negative. -d/c planning. Will go home today after clearance from internal medicine. -Tegaderm dressings provided today. Patient was advised to apply new Tegaderm dressing, with pad, prior to shower with instructions to make sure that region is properly dried before removing Tegaderm. Use new Tegaderm each day. Ample supply given. Subjective 24 Hr Interval Summary Postop day 3. Patient has no complaints. Denies any pain. No calf pain, shortness of breath or chest pain. Patient has been out of bed and walking with walker without any issues. Urine culture has returned and is negative. Patient would like to go home today. Constitutional: ambulates, no complaints Pain Control: well controlled Exam/Review of Systems Vital Signs Vitals Vital Signs Date Time Temp Pulse Resp B/P Pulse Ox O2 Delivery O2 Flow Rate FiO2 07/16/16 07:35 97.9 16 118/69 96 07/15/16 20:00 70 Room Air Intake and Output 07/15/16 07/15/16 07/16/16 15:00 23:00 07:00 Intake Total 1300 ml 1200 ml Balance 1300 ml 1200 ml Exam Free Text/Dictation -Hemovac: Removed -Incision: Clean, Dry and Intact without any redness or drainage -Thigh soft -5/5 Quadriceps, Tibialis Anterior, EHL Gastrocnemius/Soleus and Peroneals -Normal Sensation -Palpable DP/PT, Capillary Refill <2 secs -No Distal Edema -Negative Neli Sign/No calf pain -Toes Freely Movable Constitutional: alert, oriented, well developed Results Result Diagram: 07/16/1640907/16/16409 JOELLE KEMP PA-C Jul 16, 2016 08:17
[2016-07-16] MEDS: VANCOMYCIN 1 GM (PMX) 250 ML IVPB SCH (08:31)
[2016-07-16] MEDS: CYCLOSPORINE 0.05% OPH DROPERETTE LEFT EYE SCH (08:33)
[2016-07-16] MEDS: CELECOXIB 200 MG CAP PO SCH (08:34)
[2016-07-16] MEDS: DOCUSATE SODIUM 100 MG CAP PO SCH (08:34)
[2016-07-16] MEDS: TRIAMTERENE/HCTZ (37.5-25) CAP PO SCH (08:35)
[2016-07-16] MEDS: PREGABALIN 25 MG CAP PO SCH (08:36)
[2016-07-16] MEDS: ASPIRIN (EC) 325 MG TAB PO SCH (08:36)
--- NOTE | 2016-07-16 10:52 | CONS ---
Date/Time of Note Date/Time of Note DATE: 07/16/16 TIME: 10:51 Assessment/Plan Assessment/Plan Additional Assessment/Plan 1. POD 3 - R FABIENNE revision; doing well and wants to go home 2. anti-HTN meds re-started, BP stable 3. await final cultures, cont Vanc for now 4. Agree with d/c home. Consultation Date/Type/Reason Admit Date/Time Jul 13, 2016 at 07:29 24 HR Interval Summary Free Text/Dictation Feeling well, ready to go home. Exam/Review of Systems Vital Signs Vitals Vital Signs Date Time Temp Pulse Resp B/P Pulse Ox O2 Delivery O2 Flow Rate FiO2 07/16/16 07:35 97.9 16 118/69 96 07/15/16 20:00 70 Room Air Intake and Output 07/15/16 07/15/16 07/16/16 15:00 23:00 07:00 Intake Total 1300 ml 1200 ml Balance 1300 ml 1200 ml Exam Constitutional: alert, oriented, well developed Respiratory: clear to auscultation, normal air movement Cardiovascular: nl pulses, regular rate and rhythm Results Result Diagram: 07/16/16 0410 07/16/16 0410 Results 24 hrs Laboratory Tests Test 07/16/16 04:10 Anion Gap 13 Blood Urea Nitrogen 12 Calcium Level 8.5 Carbon Dioxide Level 27 Chloride Level 96 L Creatinine 0.82 Glucose Level 90 Hematocrit 39.8 Hemoglobin 13.6 Potassium Level 4.2 Sodium Level 132 L Medications Medications Current Medications Miscellaneous Information 1 ea NOTE XX ; Start 07/13/16 at 06:00; Stop 07/16/16 at 05:59 Diphenhydramine HCl (Benadryl) 25 mg Q4H PRN IV PRURITUS; Start 07/13/16 at 13: 00 Naloxone HCl (Narcan) 0.2 mg Q2M PRN IV FOR RESP RATE 8 OR LESS; Start 07/13/16 at 13:00 Lorazepam (Ativan) 0.25 mg Q6 PRN PO ANXIETY; Start 07/13/16 at 13:30 Zolpidem Tartrate 5 mg 5 mg QHS PRN PO INSOMNIA; Start 07/13/16 at 13:30 Lactated Ringer's (Lr) 1,000 ml @ 125 mls/hr Q8H IV Last administered on t 05:27; Admin Dose 125 MLS/HR; Start 07/13/16 at 13:25 Celecoxib (Celebrex) 200 mg DAILY PO Last administered on 07/16/16 08:34; Admin Dose 200 MG; Start 07/14/16 at 09:00 Tramadol HCl (Ultram) 50 mg Q6 PO Last administered on 07/16/16 06:51; Admin Dose 50 MG; Start 07/13/16 at 12:00; Stop 07/16/16 at 11:59 Oxycodone HCl (Roxicodone) 5 mg Q4H PRN PO PAIN LEVEL 1-3; Start 07/13/16 at 13: 30 Oxycodone HCl (Roxicodone) 10 mg Q4H PRN PO PAIN LEVEL 4-7; Start 07/13/16 at 13 :30 Hydromorphone HCl 1 mg 1 mg Q3H PRN IV PAIN LEVEL 8-10; Start 07/13/16 at 13:30 Vancomycin HCl (Vancocin) 250 ml @ 125 mls/hr Q12 IVPB Last administered on 08:31; Admin Dose 125 MLS/HR; Start 07/13/16 at 21:00; Stop 07/16/16 at 20:59 Ondansetron HCl (Zofran Inj) 4 mg Q6H PRN IV NAUSEA AND/OR VOMITING; Start 07/13 at 13:30 Bisacodyl (Dulcolax Supp) 10 mg Q12H PRN [place] CONSTIPATION; Start 07/13/16 at 13: 30 Magnesium Hydroxide (Milk Of Mag) 30 ml BID PRN PO CONSTIPATION; Start 07/13/16 at 13:30 Sodium Biphosphate/ Sodium Phosphate (Fleet Enema) 133 ml DAILY PRN [place] CONSTIPATION; Start 07/13/16 at 13:30 Docusate Sodium (Colace) 100 mg BID PO Last administered on 07/16/16 08:34; Admin Dose 100 MG; Start 07/13/16 at 21:00 Diphenhydramine HCl (Benadryl) 25 mg Q6H PRN PO PRURITUS; Start 07/13/16 at 13: 30 Aspirin (Ecotrin) 325 mg BID PO Last administered on 07/16/16 08:36; Admin Dose 325 MG; Start 07/14/16 at 09:00 Pregabalin (Lyrica) 50 mg BID PO Last administered on 07/16/16 08:36; Admin Dose 50 MG; Start 07/13/16 at 21:00 Pantoprazole (Protonix Tab) 40 mg BID@06,18 PO Last administered on 07/16/16 06:50; Admin Dose 40 MG; Start 07/13/16 at 18:00 Cyclosporine (Restasis) 1 drop BID LEFT EYE Last administered on 07/16/16 08: 33; Admin Dose 1 DROP; Start 07/13/16 at 21:00 Miscellaneous Information (*Rx Drug Level Order Reminder*) VANCO TROUGH @ 0, 800 ON... ONCE ONCE XX Last administered on 07/15/16 08:00; Admin Dose 1 EA; Start 07/15/16 at 08:00; Stop 07/15/16 at 08:01 Triamterene/HCTZ (Dyazide) 1 cap DAILY PO Last administered on 07/16/16 08:35 ; Admin Dose 1 CAP; Start 07/15/16 at 09:00 Clonidine (Catapres) 0.1 mg Q6H PRN PO ELEVATED BLOOD PRESSURE; Start 07/14/16 at 14:00 BAILEE WU MD Jul 16, 2016 10:52
--- NOTE | 2016-07-18 04:09 | DS ---
DATE OF ADMISSION: 07/13/2016 DATE OF DISCHARGE: 07/16/2016 CONDITION UPON DISCHARGE: Stable. ADMITTING DIAGNOSIS: Polyethylene wear right total hip arthroplasty. DISCHARGE DIAGNOSIS: Status post revision right total hip arthroplasty. 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 She was seen in the clinic complaining of right hip pain, and it was noted that she had significant polyethylene wear and osteolysis on her x-ray findings. On 07/13/2016, the patient was admitted and taken to the operating room where she underwent a revision right total hip arthroplasty. There were no intraoperative complications. The patient tolerated the procedure well. She was taken to the recovery room in stable condition. Cultures were obtained at the time of surgery. Pain was well controlled with oral pain medication. She was started on aspirin and SCDs for DVT prophylaxis. She remained hemodynamically stable and neurovascularly intact throughout her hospital stay. On postoperative day 1 , she began physical therapy and continued to make progress. On postoperative day #3, her final culture results were negative, and she was deemed stable for discharge. Prior to discharge, the incision was inspected and noted to be clean , dry, and intact. Dressing changes were done prior to the patient going home. LABORATORY ANALYSIS UPON DISCHARGE: Hemoglobin 13.6, hematocrit 39.8. Chemistry panel was within normal limits. DISCHARGE MEDICATIONS: 1. Aspirin 325 mg. 2. [place] 5/325 mg. 3. Protonix 40 mg. 4. Tramadol 50 mg. Additionally, the patient is to resume all of her normal home medications. DISCHARGE INSTRUCTIONS: The patient is to be discharged home in stable condition. She is to resume her normal diet. Activities include weightbearing as tolerated on the right lower extremity. She will began physical therapy with home health. She will be discharged home on the medications noted above. Additionally, she is to resume all of her normal home medications. She is to call the office or return to the emergency room for any concerns including increased redness, swelling, drainage, fever, or any concerns regarding the operation or site of incision. FOLLOWUP: The patient is to call the office with Dr. Mandel on 07/24/2016. Dictated By: TRACY CARTER for LEENA MACKEY/NTS Conf#: [id number] [facility]#: [id number] MTDD
== END 2016-07-16 13:40 | disposition home health service (06) | DRG 468 ==
LOC: REC 07:29 → MS1 16:20
PROVIDERS: ADMIT Orthopaedic Surgery; ATTEND Orthopaedic Surgery
PROC: 0SP909Z Removal of Liner from Right Hip Joint, Open Approach (ICD-10-PCS; 2016-07-13)
PROC: 0SUR09Z Supplement Right Hip Joint, Femoral Surface with Liner, Open Approach (ICD-10-PCS; 2016-07-13)
PROC: 0SPR0JZ Removal of Synthetic Substitute from Right Hip Joint, Femoral Surface, Open Approach (ICD-10-PCS; 2016-07-13)
PROC: 0SRR01Z Replacement of Right Hip Joint, Femoral Surface with Metal Synthetic Substitute, Open Approach (ICD-10-PCS; principal; 2016-07-13 10:30)
DX: T84.060A Wear of articular bearing surface of internal prosthetic right hip joint, initial encounter (principal); I10 Essential (primary) hypertension; M89.551 Osteolysis, right thigh; Y83.8 Other surgical procedures as the cause of abnormal reaction of the patient, or of later complication, without mention of misadventure at the time of the procedure; Y92.89 Other specified places as the place of occurrence of the external cause; M81.0 Age-related osteoporosis without current pathological fracture
CPT/HCPCS: 72170; 73500; 73530; 80048; 80202; 81003; 85014; 85018; 86850; 86900; 86901; 86920; 87070; 87075; 87081; 87086; 97110; 97116; 97162; 97167; 97530; C1713; C1762; C9290; J0131; J0171; J0690; J0735; J1100; J1644; J1885; J2250; J2274; J2405; J3010; J3370; J7120

== ENCOUNTER → 2016-07-24 | Outpatient (CLI) | payer BC, MEDICARE ==
[~2016-07-24] MED LIST changes: -ASPI-664 PO; +ASPI325T32 PO; -BUPIVACAINE LIPOSOME/PF 266 MG/20 ML VIAL INFIL SCH; -CEFAZOLIN 1 GM INJ ONE; -CELECOXIB 400 MG PO X1 DOSE PO ONE; +CHOL400C PO; -EXPAREL NOTE (BUPIVICAINE LIPOSOMAL) XX SCH; +HYDR-906 PO; -LACTATED RINGER'S 1,000 ML IV SCH; +LORA-441 PO; +MAXZ25 PO; +MECL-77 PO; -OMEG-135 PO; -OMEG500C3 PO; +ONDA4SOL2 PO; +PANT40TA4 PO; -PREGABALIN 300 MG PO X1 PO ONE; +TRAM50TA2 PO; -TRANEXAMIC ACID 900 MG in SOD CHLORIDE 0.9% 100 ML IVPB SCH; -TRANEXAMIC ACID 900 MG in SOD CHLORIDE 0.9% 91 ML IV ONE; -VANCOMYCIN 1 GM/NS 250 ML X1 BEFORE INCISION IVPB ONE; +ZOLP5TAB PO; -[UNRECOGNIZED DRUG - CODE] PO; -oxyCODONE (CR) 10 MG TAB [oxyCONTIN] X1 DOSE PO ONE; -traMADOL 50 MG TAB X 1 DOSE PO ONE
--- NOTE | 2016-07-24 10:53 | RADRPT ---
PROCEDURE: XR AP pelvis and Hip. CLINICAL INDICATION: Pain. TECHNIQUE: AP and frog lateral views of the left hip were performed. COMPARISON: AP pelvis 07/13/2016 to 02:43 p.m. FINDINGS: There are bilateral arthroplasties with surgical nir noted over the lateral margin of the right hip. Radiopaque antibiotic pellets seen adjacent to the right hip arthroplasty were removed. There are metal clips adjacent to the inferior ramus of the pubis. There are degenerative changes in the lower lumbar spine with a transitional vertebra identified at the lumbosacral junction. IMPRESSION: 1. Status post bilateral hip arthroplasties which appear anatomically aligned. 2. 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 3. 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 RPTAT:AAJJ Physician Devyn Date Time Electronically viewed and signed by Physician Devyn on 07/24/2016 10:53 JM/
--- NOTE | 2016-07-24 21:37 | HKNOTE ---
DATE OF SERVICE: 07/24/2016 INTERVAL HISTORY: The patient presents today for her first postoperative evaluation. She is now approximately 10 days status post revision right total hip arthroplasty. She underwent a head and liner exchange approximately 10 days ago. She is doing well overall. She is home doing physical therapy with home health. She denies any fevers or chills. The patient denies any significant pain. She is ambulating with a front-wheel walker or cane. She presents today for her first postoperative evaluation. PHYSICAL EXAMINATION: Today, she is alert and oriented x4, in no acute distress. Exam of the incision notes it to be clean, dry, and intact. [place] are in place. There is no erythema or warmth. No pus or drainage. There is no significant soft tissue swelling. Homans sign is negative. She is neurovascularly intact distally. IMAGING: X-rays of the right hip are obtained today and reviewed by me. They show good anatomic location of the right hip area prosthesis. There is no fracture or dislocation identified. ASSESSMENT: Ten days status post revision right total hip arthroplasty (head and liner exchange). DISCUSSION: [place] were removed today and Steri-Strips were applied. She is to continue aspirin twice daily for DVT prophylaxis. She is to continue physical therapy with home health and gradually wean herself off of her cane. She is to follow up in 4 weeks for repeat evaluation. Dictated By: TRACY CARTER for LEENA MACKEY/ANGELITA Conf#: [id number] DID#: [id number] MTDD
== END | disposition home or self-care (01) ==
LOC: HKI 10:03
PROVIDERS: ATTEND Orthopaedic Surgery
DX: Z47.1 Aftercare following joint replacement surgery (principal); Z96.641 Presence of right artificial hip joint
CPT/HCPCS: 73502

== ENCOUNTER → 2016-08-21 | Outpatient (CLI) | END | disposition home or self-care (01) | DX: Z47.1 Aftercare following joint replacement surgery (principal); T84.050A Periprosthetic osteolysis of internal prosthetic right hip joint, initial encounter; Z96.641 Presence of right artificial hip joint ==

== ENCOUNTER → 2016-10-02 | Outpatient (CLI) | payer BC ==
--- NOTE | 2016-10-02 13:07 | RADRPT ---
PROCEDURE: XR Right hip and pelvis. CLINICAL INDICATION: Right hip pain and pelvic pain. TECHNIQUE: 3 views. Frontal pelvis. Frontal and lateral right hip. COMPARISON: 08/21/2016. FINDINGS: There are bilateral total hip arthroplasties. These appears satisfactory with no fracture, dislocat ion or loosening. Surgical clips are present in the right inguinal region. The soft tissues are normal. There are degenerative changes of the lower lumbar spine. There is no lytic or blastic lesion. The sacroiliac joints are grossly normal. IMPRESSION: 1. Satisfactory postoperative appearance of both hips. 2. Prior right inguinal region surgery. RPTAT: QQ .Yusuf Lal MD, MD Date Time Electronically viewed and signed by .Yusuf Lal MD, MD on 10/02/2016 13:06 .R/
== END | disposition home or self-care (01) ==
LOC: HKI 09:28
PROVIDERS: ATTEND Orthopaedic Surgery
DX: Z47.1 Aftercare following joint replacement surgery (principal); T84.060A Wear of articular bearing surface of internal prosthetic right hip joint, initial encounter; T84.050A Periprosthetic osteolysis of internal prosthetic right hip joint, initial encounter; Z96.641 Presence of right artificial hip joint
CPT/HCPCS: 73502

== ENCOUNTER → 2017-01-03 | Outpatient (CLI) | payer BC ==
--- NOTE | 2017-01-03 17:32 | RADRPT ---
PROCEDURE: XR Right hip and pelvis. CLINICAL INDICATION: Right hip pain and pelvic pain. TECHNIQUE: 3 views. Frontal pelvis. Frontal and lateral right hip. COMPARISON: 10/02/2016 FINDINGS: There are bilateral total hip arthroplasties. These appear satisfactory with no fracture, dislocati on, or loosening. Multiple surgical clips are present in the right inguinal region. The sacroiliac joints are grossly normal. The upper pelvis is not included on the images. There is no lytic or blastic lesion. IMPRESSION: 1. Satisfactory postoperative appearance of both hips. 2. Prior right inguinal surgery. RPTAT: QQ .Yusuf Lal MD, MD Date Time Electronically viewed and signed by .Yusuf Lal MD, MD on 01/03/2017 17:31 .R/
== END | disposition home or self-care (01) ==
LOC: HKI 09:29
PROVIDERS: ATTEND Orthopaedic Surgery
DX: Z47.89 Encounter for other orthopedic aftercare (principal); Z96.643 Presence of artificial hip joint, bilateral
CPT/HCPCS: 73502; G0463

== ENCOUNTER 2017-02-22 07:44 | Emergency (ER) | payer BC ==
[~2017-02-22] VITALS: Ht 167.6 cm; Wt 90.0 kg
[2017-02-22 07:46] VITALS: Ht 167.6 cm; Wt 90.0 kg
[2017-02-22] MEDS ORDERED: ONDANSETRON 4 MG INJ IV STA (07:58)
[2017-02-22] MEDS ORDERED: SOD CHLORIDE 0.9% 1,000 ML IV STA (07:58)
[2017-02-22] MEDS ORDERED: HYDROCHLOROTHIAZIDE 25 MG TAB PO ONE (08:00)
[2017-02-22 09:00] LABS: BASOPHIL # 0.1 10^3/ul (0.0-0.1); EOSINOPHILS % 0.4 % (0.0-7.0); HEMATOCRIT 38.6 % (37.0-47.0); HEMOGLOBIN 13.5 g/dl (12.0-16.0); LYMPHOCYTES # 1.3 10^3/ul (0.8-2.9); LYMPHOCYTES % 18.7 % (15.0-51.0); MEAN CORPUSCULAR HEMOGLOBIN 31.3 pg (29.0-33.0); MEAN CORPUSCULAR VOLUME 89.6 fl (82.0-101.0); MONOCYTE # 0.6 10^3/ul (0.3-0.9); MONOCYTES % 8.7 % (0.0-11.0); NEUTROPHIL # 4.7 10^3/ul (1.6-7.5); NEUTROPHILS % 70.8 % (39.0-77.0); PLATELET COUNT 317 10^3/UL (140-415); RED BLOOD COUNT 4.31 10^6/ul (4.20-5.40); RED CELL DISTRIBUTION WIDTH 12.2 % (11.5-14.5); WHITE BLOOD COUNT 6.7 10^3/ul (4.8-10.8)
--- NOTE | 2017-02-22 09:04 | ERD ---
ER Documentation Chief Complaint Date/Time DATE: 02/22/17 TIME: 09:03 Chief Complaint Complains of dizziness sent from [employer] with HTN HPI 66-year-old woman complains of dizziness while at work today, she does have a history of hypertension and states she may have not taken all of her antihypertensives this morning. She denies loss of consciousness, no slurred speech, no weakness in her arms or legs, no difficulty ambulating. Patient states symptoms similar to this have occurred in the past. Patient is currently asymptomatic but feels if that she gets up she may feel dizzy again. ROS All systems reviewed and are negative except as per history of present illness. Medications Home Meds Active Scripts Hydrocodone/Acetaminophen ([place] 5-325 Tablet) 1 Each Tablet, 1 EACH PO Q6 Y for PAIN LEVEL 6-10, #60 TAB Prov:TRACY MCCALLUM PA-C 07/14/16 Tramadol HCl (Tramadol HCl) 50 Mg Tablet, 50 MG PO Q6 for 30 Days, #60 TAB Prov:TRACY MCCALLUM PA-C 07/14/16 Pantoprazole* (Pantoprazole*) 40 Mg Tablet., 40 MG PO BID@06,18 for 40 Days, # 40 Prov:TRACY MCCALLUM PA-C 07/14/16 Aspirin (Aspir-Libby) 325 Mg Tablet., 325 MG PO BID for 42 Days, #84 Prov:TRACY MCCALLUM PA-C 07/14/16 Reported Medications Meclizine Hcl* (Meclizine Hcl*) 25 Mg Tablet, 25 MG PO Q6H Y for VERTIGO, TAB 07/13/16 Triamterene/Hctz* (Maxzide (37.5-25)*) 1 Each Tablet, 1 EACH PO DAILY, #30 TAB 07/13/16 Ondansetron HCl (Zofran) 4 Mg/5 Ml Solution, 4 MG PO Q6 07/13/16 Lorazepam* (Ativan*) 0.5 Mg Tablet, 0.5 MG PO, #60 TAB 07/13/16 Ergocalciferol (Vitamin D) 400 Unit Capsule, 400 UNIT PO DAILY, CAP 07/13/16 Zolpidem Tartrate* (Ambien*) 5 Mg Tablet, 5 MG PO QHS Y for INSOMNIA, #30 TAB 07/13/16 Multivitamins* (Once Daily*) 1 Tab Tablet, 1 TAB PO DAILY, TAB 12/04/15 Cyclosporine* (Restasis* Oph) 32 Ea [place], 1 EA OP BID 01/04/13 Allergies Allergies: Coded Allergies: Penicillins (Verified Allergy, Severe, 01/04/13) PMhx/Soc Hypertension History of Surgery: Yes (BREAST AUGMENTATION, EYE LID LIFT, RONNA REPLACEMENT) Anesthesia Reaction: No Hx Neurological Disorder: No Hx Respiratory Disorders: No Hx Cardiac Disorders: No Hx Psychiatric Problems: No Hx Miscellaneous Medical Probl: Yes (refer to note) Hx Alcohol Use: Yes (SOCIALLY) Hx Substance Use: No Hx Tobacco Use: No FmHx Family History: No diabetes Physical Exam Vitals Vital Signs Date Time Temp Pulse Resp B/P Pulse Ox O2 Delivery O2 Flow Rate FiO2 02/22/17 10:22 78 18 146/79 98 Room Air 02/22/17 07:46 97.2 81 20 175/84 98 Physical Exam GENERAL: Well-developed, well-nourished, well-hydrated, in no apparent distress , looks nontoxic in appearance HEENT: Moist mucous membranes, pink conjunctiva, no cervical spine tenderness or step-off deformities, no goiter, no jaundice or icterus, extraocular movements intact without pain. No submandibular induration, and no pharyngeal erythema NEURO: Alert and oriented 3, cranial nerves II through XII intact bilaterally, pupils equal round reactive to light, no focal deficits or facial asymmetry, sensation intact distally Strength 5/5 in upper and lower extremities bilaterally CARDIAC: Regular rate and rhythm, no murmurs rubs or gallops LUNGS: Clear bilaterally no wheezing crackles or stridor ABDOMEN: Soft nontender, no guarding, no rigidity, no rebound, no psoas sign no obturator sign. Normoactive bowel sounds SKIN: Warm and dry to touch, no abrasions, contusions, or hematomas, no lacerations, no ecchymosis, no target lesions, and without ulcers EXTREMITIES: No clubbing cyanosis or edema, calves are bilaterally symmetrical, no Homans sign, no popliteal cord sign. Distal pulses equal and bilateral PSYCH: Normal affect without agitation or irritability Result Diagram: 02/22/17 0840 02/22/17 0840 Results 24 hrs Laboratory Tests Test 02/22/17 08:40 02/22/17 09:12 White Blood Count 6.710^3/ul Red Blood Count 4.3110^6/ul Hemoglobin 13.5g/dl Hematocrit 38.6% Mean Corpuscular Volume 89.6fl Mean Corpuscular Hemoglobin 31.3pg Mean Corpuscular Hemoglobin Concent 35.0g/dl Red Cell Distribution Width 12.2% Platelet Count 46595^3/UL Mean Platelet Volume 9.0fl Neutrophils % 70.8% Lymphocytes % 18.7% Monocytes % 8.7% Eosinophils % 0.4% Basophils % 1.0% Nucleated Red Blood Cells % 0.0/100WBC Neutrophils # 4.710^3/ul Lymphocytes # 1.310^3/ul Monocytes # 0.610^3/ul Eosinophils # 0.010^3/ul Basophils # 0.110^3/ul Nucleated Red Blood Cells # 0.010^3/ul Sodium Level 128mmol/L Potassium Level 3.5mmol/L Chloride Level 92mmol/L Carbon Dioxide Level 25mmol/L Anion Gap 15 Blood Urea Nitrogen 16mg/dl Creatinine 0.74mg/dl Glucose Level 100mg/dl Calcium Level 8.8mg/dl Total Bilirubin 0.5mg/dl Direct Bilirubin 0.00mg/dl Indirect Bilirubin 0.5mg/dl Aspartate Amino Transf (AST/SGOT) 39IU/L Alanine Aminotransferase (ALT/SGPT) 44IU/L Alkaline Phosphatase 99IU/L Troponin I < 0.012ng/ml Total Protein 8.2g/dl Albumin 4.7g/dl Globulin 3.50g/dl Albumin/Globulin Ratio 1.34 Lipase 104U/L Urine Color YELLOW Urine Clarity CLEAR Urine pH 6.0 Urine Specific [place] 1.017 Urine Ketones NEGATIVEmg/dL Urine Nitrite NEGATIVEmg/dL Urine Bilirubin NEGATIVEmg/dL Urine Urobilinogen NEGATIVEmg/dL Urine Leukocyte Esterase TRACELeu/ul Urine Microscopic RBC 1/HPF Urine Microscopic WBC 2/HPF Urine Hemoglobin NEGATIVEmg/dL Urine Glucose NEGATIVEmg/dL Urine Total Protein NEGATIVEmg/dl Current Medications Medications (Trade) Dose Ordered Sig/Mikie Route PRN Reason Start Time Stop Time Status Last Admin Dose Admin Sodium Chloride (NS) 1,000 ml @ 1,000 mls/hr Q1H STAT IV 02/22/17 07:58 02/22/17 08:57 DC 02/22/17 08:56 Ondansetron HCl (Zofran Inj) 4 mg ONCE STAT IV 02/22/17 07:58 02/22/17 07:59 DC Hydrochlorothiazide (Hydrochlorothiazide) 25 mg ONCE ONCE PO 02/22/17 08:00 02/22/17 08:01 DC 02/22/17 09:05 Procedures/MDM IV line was established patient was placed on recycler rhythm strip revealed a sinus rhythm at about 80 bpm with upright P and T waves. Patient was afebrile. EKG performed, read by me revealed a normal sinus rhythm 86 bpm, normal axis, narrow QRS complex, no concerning ST elevations or depressions noted. First- degree atrial ventricular block at 200 ms I administered 1 L normal saline intravenously, Zofran 4 mg IV, and hydrochlorothiazide 50 mg p.o. 1 for hypertension. CBC and electrolytes are normal, liver function tests were normal, troponin was negative, urine analysis was negative for infection. Symptoms resolved. Differential diagnoses considered, included but not limited to acute coronary syndrome, pulmonary embolism, aortic dissection, abdominal aortic aneurysm, sepsis, stroke, meningitis, encephalitis, pneumonia, appendicitis, cholecystitis , bowel obstruction, pyelonephritis, nephrolithiasis, cystitis, as well as metabolic, hematologic, and electrolyte abnormalities. As well as abscess, cellulitis, fractures, and dislocations. Patient feels much better at this time, and vital signs are normal, symptoms have improved. I did give strict instructions to return to the ED if symptoms continue or worsen, patient will otherwise follow-up with primary care physician. Patient understood instructions and agreed to plan. Disclaimer: Inadvertent spelling and grammatical errors are likely due to EHR/ dictation software use and do not reflect on the overall quality of patient care. Also, please note that the electronic time recorded on this note does not necessarily reflect the actual time of the patient encounter. Departure Diagnosis: Primary Impression: Dizziness Additional Impression: Hypertensive urgency Condition: LEXII Goodwin MD Feb 22, 2017 09:04
[2017-02-22 09:18] LABS: ALANINE AMINOTRANSFERASE 44 IU/L (13-69); ALBUMIN 4.7 g/dl (3.3-4.9); ALBUMIN/GLOBULIN RATIO 1.34; ALKALINE PHOSPHATASE 99 IU/L (42-121); ANION GAP 15 (8-16); ASPARTATE AMINO TRANSFERASE 39 IU/L (15-46); BILIRUBIN,INDIRECT 0.5 mg/dl (0-1.1); BILIRUBIN,TOTAL 0.5 mg/dl (0.2-1.3); BLOOD UREA NITROGEN 16 mg/dl (7-20); CALCIUM 8.8 mg/dl (8.4-10.2); CARBON DIOXIDE 25 mmol/L (21-31); CHLORIDE 92 mmol/L (97-110); CREATININE 0.74 mg/dl (0.44-1.00); GLUCOSE 100 mg/dl (70-220); POTASSIUM 3.5 mmol/L (3.5-5.1); SODIUM 128 mmol/L (135-144); TOTAL PROTEIN 8.2 g/dl (6.1-8.1)
[2017-02-22 09:27] LABS: TROPONIN-I < 0.012 ng/ml (0.00-0.12)
[2017-02-22 09:37] LABS: ADD UMIC YES; UR ASCORBIC ACID 20 mg/dL (NEGATIVE); UR BILIRUBIN (Dip) NEGATIVE (NEGATIVE); UR BLOOD (Dip) NEGATIVE (NEGATIVE); UR CLARITY CLEAR (CLEAR); UR COLOR YELLOW (YELLOW); UR GLUCOSE (Dip) NEGATIVE (NEGATIVE); UR KETONES (Dip) NEGATIVE (NEGATIVE); UR LEUKOCYTE ESTERASE (Dip) TRACE Leu/ul (NEGATIVE); UR NITRITE (Dip) NEGATIVE (NEGATIVE); UR RBC 1 /HPF (0-5); UR SPECIFIC GRAVITY (Dip) 1.017 (1.003-1.030); UR TOTAL PROTEIN (Dip) NEGATIVE (NEGATIVE); UR UROBILINOGEN (Dip) NEGATIVE (NEGATIVE)
[2017-02-22 10:22] VITALS: BP 146/79; PULSE 78; RESP 18
== END 2017-02-22 10:23 | disposition home or self-care (01) ==
LOC: E/R 07:44
DX: R42 Dizziness and giddiness (principal); I16.0 Hypertensive urgency; Z79.82 Long term (current) use of aspirin
CPT/HCPCS: 36415; 80053; 81001; 83690; 84484; 85025; 93005; 99284; J2405; J7030

== ENCOUNTER 2017-09-05 10:12 | Emergency (ER) | END 2017-09-05 12:40 | disposition home or self-care (01) ==